=== PATIENT | male | born 1965 | race Caucasian/White ===

== ENCOUNTER 2017-05-06 00:43 | Emergency (ER) | payer BC ==
[2017-05-06 00:53] VITALS: BP 115/101
[2017-05-06] MEDS ORDERED: Albuterol/Ipratropium 3.0-0.5 MG/3 ML Neb Soln NEB ONE ×2 (00:57→01:39)
[2017-05-06] MEDS ORDERED: methylPREDNISolone Sodium Succinate 125 MG/2 ML SDV IM ONE (00:58)
[2017-05-06] MEDS ORDERED: Albuterol/Ipratropium 3.0-0.5 MG/3 ML Neb Soln ONE (01:00)
--- NOTE | 2017-05-06 01:11 | EDM.PDOC ---
ED HPI GENERAL MEDICAL PROBLEM - General Chief Complaint: Respiratory Problem Stated Complaint: ASTHMA/INHALER EMPTY Time Seen by Provider: 05/06/17 00:45 Source of Information: Reports: Patient History Limitations: Reports: No Limitations - History of Present Illness INITIAL COMMENTS - FREE TEXT/NARRATIVE: This is a 51-year-old male. He has a history of asthma and he reacts to many seasonal plants and environment. He apparently is here working and he left his nebulizer at home. He was recently 2 months or so ago diagnosed with pneumonia was on antibiotics and prednisone. Tonight apparently he was out with some friends and he got short of breath and he uses inhaler once but then it ran out and he went home to try to rest but the breathing got worse and he comes to the ER for evaluation. He denies any recent increased cough or congestion. He's had no fever no chills no nausea or vomiting noted. He comes simply because his inhaler ran out and is having trouble breathing. - Related Data Allergies Allergy/AdvReac Type Severity Reaction Status Date / Time No Known Allergies Allergy Verified 02/24/16 19:08 Home Meds: Home Meds Albuterol Sulfate [Albuterol Sulfate HFA] 1 - 2 puff INH ASDIRECTED PRN [History] Albuterol/Ipratropium [DuoNeb 3.0-0.5 MG/3 ML] 1 applic INH ASDIRECTED PRN 01/03 [History] Albuterol [IJD: Ventolin HFA] 2 puff INH Q4H PRN #18 gm 02/24/16 [Rx] Fluticasone/Salmeterol [Advair Diskus 250-50] 1 puff INH BID #1 inhaler [Rx] Prednisone [IJD: predniSONE] 20 mg PO DAILY #20 tab 02/24/16 [Rx] Doxycycline Hyclate [Doxy 100] 100 mg IV BID #14 vial 05/06/17 [Rx] Doxycycline [Vibramycin] 100 mg PO Q12HR #14 cap 05/06/17 [Rx] Past Medical History Cardiovascular History: Reports: Hypertension Respiratory History: Reports: Asthma Other Musculoskeletal History: trauma to right leg with surgeries and bonegrafts , wears built up shoe Endocrine/Metabolic History: Reports: Obesity/BMI 30+ Social & Family History - Family History Family Medical History: Noncontributory - Tobacco Use Smoking Status *Q: Never Smoker Years of Tobacco use: 30 Packs/Tins Daily: 2 - Caffeine Use Caffeine Use: Reports: None - Alcohol Use Days Per Week of Alcohol Use: 2 Number of Drinks Per Day: 1 Total Drinks Per Week: 2 Date of Last Drink: 05/06/17 Time of Last Drink: 00:00 - Recreational Drug Use Recreational Drug Use: No ED ROS GENERAL - Review of Systems Review Of Systems: See Below Constitutional: Denies: Fever, Chills HEENT: Denies: Throat Pain Respiratory: Reports: Shortness of Breath, Wheezing, Cough, Sputum Cardiovascular: Denies: Chest Pain Endocrine: Reports: No Symptoms GI/Abdominal: Denies: Abdominal Pain, Nausea, Vomiting : Reports: No Symptoms Musculoskeletal: Reports: No Symptoms Skin: Reports: No Symptoms Neurological: Reports: No Symptoms Psychiatric: Reports: No Symptoms Hematologic/Lymphatic: Reports: No Symptoms ED EXAM, GENERAL - Physical Exam Exam: See Below Exam Limited By: No Limitations General Appearance: Alert, WD/WN, Mild Distress, Other (That would be respiratory distress) Eye Exam: Bilateral Eye: Normal Inspection Ears: Normal External Exam, Normal Canal, Normal TMs Nose: Normal Inspection Throat/Mouth: Normal Inspection, Normal Lips, Normal Voice Head: Normocephalic Neck: Supple Respiratory/Chest: No Respiratory Distress, Wheezing, Other (I do not hear any suggestion of infiltrate when I auscultate his lungs but he does have lots of inspiratory and expiratory wheezing with a prolonged expiratory phase) Cardiovascular: Regular Rate, Rhythm, No Murmur, Tachycardia GI/Abdominal: Soft Back Exam: Full Range of Motion Extremities: Normal Inspection, Normal Range of Motion, No Pedal Edema Neurological: Alert, Oriented Psychiatric: Anxious Skin Exam: Warm, Dry Course - Vital Signs Last Recorded V/S: Last Vital Signs Temp 96.5 F 05/06/17 00:48 Pulse 110 H 05/06/17 00:48 Resp 22 H 05/06/17 00:48 BP 115/101 H 05/06/17 00:48 Pulse Ox 98 05/06/17 01:39 - Orders/Labs/Meds Orders: Active Orders 24 hr Category Date Time Status RT Aerosol Therapy [RC] ASDIRECTED Care 05/06/17 00:57 Active RT Aerosol Therapy [RC] ASDIRECTED Care 05/06/17 01:39 Active RT Post Treatment Assessment [RC] Click to Edit Care 05/06/17 02:08 Ordered RT Pre-Treatment Assessment [RC] Click to Edit Care 05/06/17 02:08 Ordered Albuterol [Proventil HFA] Med 05/06/17 02:07 Once 1 gm INH ONETIME ONE cefTRIAXone 1 GM with Lidocaine 1% 2.1 ML IM Med 05/06/17 02:15 Ordered cefTRIAXone [Rocephin] 1 gm Lidocaine 1% [Xylocaine 1%] 2.1 ml IM Q24H Medication Orders Ceftriaxone Sodium 1 gm/ (Lidocaine HCl 2.1 ml) 0 gm IM Q24H CHINTAN Meds: Medications Generic Name Dose Route Start Last Admin Trade Name Freq PRN Reason Stop Dose Admin Ceftriaxone Sodium 1 gm/ 0 gm 05/06/17 02:15 Lidocaine HCl 2.1 ml IM Q24H CHINTAN Discontinued Medications Generic Name Dose Route Start Last Admin Trade Name Freq PRN Reason Stop Dose Admin Albuterol/Ipratropium 3 ml 05/06/17 00:57 05/06/17 01:00 Duoneb 3.0-0.5 Mg/3 Ml NEB 05/06/17 00:58 3 ml ONETIME ONE Administration Albuterol/Ipratropium Confirm 05/06/17 01:00 05/06/17 01:47 Duoneb 3.0-0.5 Mg/3 Ml Administered 05/06/17 01:01 3 ml Dose Administration 3 ml .ROUTE .STK-MED ONE Albuterol/Ipratropium 3 ml 05/06/17 01:39 05/06/17 01:47 Duoneb 3.0-0.5 Mg/3 Ml NEB 05/06/17 01:40 3 ml ONETIME ONE Administration Methylprednisolone Sodium Succinate 125 mg 05/06/17 00:58 05/06/17 01:12 Solu-Medrol IM 05/06/17 00:59 125 mg ONETIME ONE Administration - Re-Assessments/Exams Free Text/Narrative Re-Assessment/Exam: 05/06/17 02:09 Patient is feeling much better and his lungs were clearing considerably. We will provide a Rocephin shot IM because I believe he's got some early bronchitis and we'll also dispense an albuterol inhaler for him to use at home. I encouraged him to find a family doctor for follow-up with and possibly get his nebulizer from home up to each ear for him to use. Departure - Departure Time of Disposition: 02:09 Disposition: Home, Self-Care 01 Condition: Good Clinical Impression: Acute bronchitis Qualifiers: Bronchitis organism: unspecified organism Qualified Code(s): J20.9 - Acute bronchitis, unspecified Exacerbation of asthma Qualifiers: Asthma severity: mild Asthma persistence: intermittent Qualified Code(s): J45.21 - Mild intermittent asthma with (acute) exacerbation - Discharge Information Prescriptions: Doxycycline [Vibramycin] 100 mg PO Q12HR #14 cap Doxycycline Hyclate [Doxy 100] 100 mg IV BID #14 vial Referrals: Clare Brothers NP [Primary Care Provider] - Forms: ED Department Discharge Additional Instructions: Follow-up with your family doctor this week for recheck, use your inhaler 2 puffs every 6 hours for the wheezing, continue with your normal asthma surveillance and avoid those allergens that make your asthma worse, take the antibiotics as prescribed but you can start them Sunday evening or Sunday morning since you received the Rocephin shot in the ER, return to the ER if needed - My Orders Last 24 Hours: My Active Orders 05/06/17 00:57 RT Aerosol Therapy [RC] ASDIRECTED 05/06/17 01:39 RT Aerosol Therapy [RC] ASDIRECTED 05/06/17 02:07 Albuterol [Proventil HFA] 1 gm INH ONETIME ONE 05/06/17 02:08 RT Post Treatment Assessment [RC] Click to Edit RT Pre-Treatment Assessment [RC] Click to Edit 05/06/17 02:15 cefTRIAXone 1 GM with Lidocaine 1% 2.1 ML IM cefTRIAXone [Rocephin] 1 gm Lidocaine 1% [Xylocaine 1%] 2.1 ml IM Q24H - Assessment/Plan Last 24 Hours: My Active Orders 05/06/17 00:57 RT Aerosol Therapy [RC] ASDIRECTED 05/06/17 01:39 RT Aerosol Therapy [RC] ASDIRECTED 05/06/17 02:07 Albuterol [Proventil HFA] 1 gm INH ONETIME ONE 05/06/17 02:08 RT Post Treatment Assessment [RC] Click to Edit RT Pre-Treatment Assessment [RC] Click to Edit 05/06/17 02:15 cefTRIAXone 1 GM with Lidocaine 1% 2.1 ML IM cefTRIAXone [Rocephin] 1 gm Lidocaine 1% [Xylocaine 1%] 2.1 ml IM Q24H
[2017-05-06] MEDS ORDERED: Albuterol 6.7 GM Inhaler INH ONE (02:07)
[2017-05-06] MEDS ORDERED: cefTRIAXone 1 GM, Lidocaine 1% 2.1 ML IM SCH ×2 (02:15)
== END 2017-05-06 02:32 | disposition home or self-care (01) ==
LOC: JD.ED 00:43
DX: J20.9 Acute bronchitis, unspecified (principal); J45.21 Mild intermittent asthma with (acute) exacerbation; I10 Essential (primary) hypertension; Z79.899 Other long term (current) drug therapy
CPT/HCPCS: 94640; 96372; 99285; A9270; J0696; J2930; 99284